=== PATIENT | female | born 1995 | race Caucasian/White ===

== ENCOUNTER → 2020-10-01 15:27 | Outpatient (CLI) | payer SELFPAY ==
[2020-10-01 18:05] LABS: Estradiol 53.3 pg/mL; Follicle Stimulating Hormone 8.3 mIU/mL; Luteinizing Hormone 8.1 mIU/mL
== END ==
PROVIDERS: Visit Provider Student in an Organized Health Care Education/Training Program
DX: N97.9 Female infertility, unspecified (principal)
CPT/HCPCS: 36415; 82670; 83001; 83002

== ENCOUNTER → 2020-10-18 10:39 | Outpatient (CLI) | payer SELFPAY ==
[2020-10-18 12:27] LABS: Progesterone Level 6.77 ng/mL (See Comment)
== END ==
PROVIDERS: Visit Provider Student in an Organized Health Care Education/Training Program
DX: N97.9 Female infertility, unspecified (principal)
CPT/HCPCS: 36415; 84144

== ENCOUNTER → 2022-07-13 | Outpatient (CLI) | payer OTHER, SELFPAY ==
[2022-07-13 14:38] LABS: Estradiol 47.9 pg/mL; Follicle Stimulating Hormone 7.6 mIU/mL; Luteinizing Hormone 6.7 mIU/mL
== END | disposition home or self-care (01) ==
LOC: WOBLAB 13:05
PROVIDERS: Visit Provider Student in an Organized Health Care Education/Training Program
DX: N97.9 Female infertility, unspecified (principal)
CPT/HCPCS: 36415; 82670; 83001; 83002; 84146

== ENCOUNTER → 2022-07-16 | Outpatient (CLI) | payer OTHER, SELFPAY ==
--- NOTE | 2022-07-16 11:04 | RAD_ITS ---
STUDY: HYSTEROSALPINGOGRAM. REASON FOR EXAM: Female, 27 years old. INFERTILITY FLUOROSCOPY TIME (if supplied): ( 9 seconds ) minutes/seconds. 2 images were submitted. TECHNIQUE: A hysterosalpingogram was performed by the volunteer services director. Imaging was obtained. COMPARISON: None. FINDINGS: The uterus is unremarkable. Both fallopian tubes are patent with free flow. RAD/Salpingogram IMPRESSION: Unremarkable hysterosalpingogram. Electronically Signed: Lul Finley MD at 13:19 EDT ,
== END | disposition home or self-care (01) ==
PROVIDERS: PCP Orthopaedic Surgery; Referring Provider Student in an Organized Health Care Education/Training Program; Visit Provider Student in an Organized Health Care Education/Training Program
DX: Z31.41 Encounter for fertility testing (principal)
CPT/HCPCS: 58340; 74740

== ENCOUNTER → 2022-09-15 | Outpatient (CLI) | payer OTHER, SELFPAY ==
[2022-09-15 11:30] LABS: Hematocrit 37.7 % (37-47); Hemoglobin 12.1 g/dL (12.0-15.0); Mean Corp Hgb Conc 32.1 g/dL (32-36); Mean Corpuscular Hgb 27.7 pg (27.0-32.0); Mean Corpuscular Volume 86.3 fL (81-99); Mean Platelet Vol. 9.8 fl (6.2-12.0); Platelet Count 331 K/mm3 (150-450); RBC Distribution Width CV 12.8 % (11.6-14.6); RBC Distribution Width SD 40.1 fl (35.1-43.9); Red Blood Count 4.37 M/mm3 (4.2-5.4)
[2022-09-15 11:44] LABS: ALB/GLOB Ratio 1.1 RATIO (0.9-2.4); AST(SGOT) 6 U/L (15-37); Alanine Aminotransfer ALT/SGPT 21 U/L (13-56); Albumin, Serum 4.1 g/dL (3.2-5.0); Alkaline Phosphatase 38 U/L (45-117); Anion Gap 5 (5-15); BUN 11 mg/dL (7-18); BUN/Creat Ratio 16.1 RATIO (10-20); Calcium,Total 9.3 mg/dL (8.5-10.1); Chloride 105 mmol/L (98-107); Creatinine, Serum 0.68 mg/dL (0.55-1.02); EST Glomerular Filtration Rate 109 mL/min (>60); Est Glom Filt Rate - Afr Amer 132 mL/min (>60); Globulin 3.9 g/dL (2.2-4.2); Glucose 96 mg/dL (74-106); Potassium 3.7 mmol/L (3.5-5.1); Sodium Level 139 mmol/L (136-145)
[2022-09-15 12:18] LABS: HIV - WCH Non-Reactive (Nonreactive); Hepatitis B Surface Antigen Non-Reactive (Nonreactive); Hepatitis C Antibody Non-Reactive (Nonreactive); Rubella IgG Reactive (Nonreactive); Syphilis Antibodies Non-reactive; Vitamin D,25 Hydroxy 45.2 ng/mL
[2022-09-15 14:33] LABS: Hemoglobin A1c 5.4 % (3.8-5.6)
[2022-09-18 20:52] LABS: Anti-Mullerian Hormone,Serum 1.04 ng/mL (.); V-Zoster IgG (Immunity) 2208 index (Immune >165)
== END | disposition home or self-care (01) ==
LOC: WOBLAB 10:04
PROVIDERS: PCP Orthopaedic Surgery; Visit Provider Obstetrics & Gynecology Reproductive Endocrinology
DX: Z31.41 Encounter for fertility testing (principal)
CPT/HCPCS: 36415; 80053; 82306; 83036; 83516; 84403; 85027; 86703; 86762; 86780; 86787; 86803; 86900; 86901; 87340

== ENCOUNTER → 2022-09-21 | Outpatient (CLI) | payer OTHER, SELFPAY ==
[2022-09-21 09:26] LABS: Thyroid Stim Hormone (TSH) 1.89 uIU/mL (0.358-3.74)
== END | disposition home or self-care (01) ==
LOC: WOBLAB 08:49
PROVIDERS: PCP Orthopaedic Surgery; Visit Provider Obstetrics & Gynecology Reproductive Endocrinology
DX: Z31.41 Encounter for fertility testing (principal)
CPT/HCPCS: 36415; 84443

== ENCOUNTER → 2022-10-07 | Outpatient (CLI) | payer OTHER, SELFPAY ==
[2022-10-07 11:58] LABS: hCG Titer Quant., Serum 534 mIU/mL (1-3)
== END | disposition home or self-care (01) ==
LOC: WOBLAB 10:43
PROVIDERS: PCP Orthopaedic Surgery; Visit Provider Student in an Organized Health Care Education/Training Program
DX: N91.2 Amenorrhea, unspecified (principal)
CPT/HCPCS: 36415; 84702

== ENCOUNTER → 2022-10-28 | Outpatient (CLI) | payer OTHER, SELFPAY ==
[2022-10-28 13:30] LABS: Absolute Neutrophil Count 2.5 X10^3/uL (2.0-7.7); Basophil# 0.05 X10^3/uL; Basophil% 0.9 % (0-1); Eosinophil# 0.14 X10^3/uL; Eosinophils% 2.6 % (0-5); Hematocrit 33.1 % (37-47); Hemoglobin 11.2 g/dL (12.0-15.0); Lymphocyte % 42.8 % (19-41); Mean Corp Hgb Conc 33.8 g/dL (32-36); Mean Corpuscular Hgb 28.2 pg (27.0-32.0); Mean Corpuscular Volume 83.4 fL (81-99); Mean Platelet Vol. 9.2 fl (6.2-12.0); Monocyte# 0.34 X10^3/uL; Monocyte% 6.3 % (0-10); NRBC Flagged by Analyzer 0 % (0-5); Neutrophil # 2.52 X10^3/uL (2.7-7.7); Platelet Count 311 K/mm3 (150-450); RBC Distribution Width CV 13.1 % (11.6-14.6); RBC Distribution Width SD 39.8 fl (35.1-43.9); Red Blood Count 3.97 M/mm3 (4.2-5.4); White Blood Count 5.4 K/mm3 (4.4-11.0)
[2022-10-28 14:14] LABS: HIV - WCH Non-Reactive (Nonreactive); Hepatitis B Surface Antigen Non-Reactive (Nonreactive); Hepatitis C Antibody Non-Reactive (Nonreactive); Rubella IgG Reactive (Nonreactive); Syphilis Antibodies Non-reactive
[2022-10-31 14:18] LABS: V-Zoster IgG (Immunity) 2626 index (Immune >165)
[2022-11-03 11:35] LABS: HPV Reflexed? NOT INDICATED
== END | disposition home or self-care (01) ==
LOC: WOBLAB 11:18
PROVIDERS: PCP Orthopaedic Surgery; Visit Provider Student in an Organized Health Care Education/Training Program
DX: Z34.81 Encounter for supervision of other normal pregnancy, first trimester (principal)
CPT/HCPCS: 36415; 85025; 86703; 86762; 86780; 86787; 86803; 87086; 87088; 87340; 88175; G0145

== ENCOUNTER → 2023-03-24 | Outpatient (CLI) | payer OTHER, SELFPAY ==
[2023-03-24 17:06] LABS: Absolute Lymphocyte Count 1.77 X10^3/uL (0.83-4.51); Absolute Neutrophil Count 7.5 X10^3/uL (2.0-7.7); Basophil# 0.02 X10^3/uL; Basophil% 0.2 % (0-1); Eosinophil# 0.13 X10^3/uL; Eosinophils% 1.3 % (0-5); Hematocrit 28.1 % (37-47); Hemoglobin 9.6 g/dL (12.0-15.0); Lymphocyte # 1.77 X10^3/ul (0.83-4.51); Lymphocyte % 17.9 % (19-41); Mean Corp Hgb Conc 34.2 g/dL (32-36); Mean Corpuscular Hgb 29.9 pg (27.0-32.0); Mean Corpuscular Volume 87.5 fL (81-99); Mean Platelet Vol. 9.2 fl (6.2-12.0); Monocyte# 0.41 X10^3/uL; Monocyte% 4.1 % (0-10); NRBC Flagged by Analyzer 0 % (0-5); Neutrophil # 7.48 X10^3/uL (2.7-7.7); Neutrophil % 75.8 % (47-70); Platelet Count 270 K/mm3 (150-450); RBC Distribution Width SD 41.8 fl (35.1-43.9); Red Blood Count 3.21 M/mm3 (4.2-5.4); White Blood Count 9.9 K/mm3 (4.4-11.0)
[2023-03-24 18:06] LABS: Glucose Challenge Gest 1H 50g 131 mg/dL (70-140)
[2023-03-24 19:09] LABS: Syphilis Antibodies Non-reactive
== END | disposition home or self-care (01) ==
LOC: LABSPEC 16:12
PROVIDERS: PCP Orthopaedic Surgery; Visit Provider Student in an Organized Health Care Education/Training Program
DX: Z34.82 Encounter for supervision of other normal pregnancy, second trimester (principal)
CPT/HCPCS: 36415; 82950; 85025; 86780

== ENCOUNTER → 2023-05-25 | Outpatient (CLI) | payer OTHER, SELFPAY ==
[2023-05-25 12:08] LABS: Hematocrit 32.3 % (37-47); Hemoglobin 10.9 g/dL (12.0-15.0); Mean Corp Hgb Conc 33.7 g/dL (32-36); Mean Corpuscular Hgb 29.5 pg (27.0-32.0); Mean Corpuscular Volume 87.5 fL (81-99); Mean Platelet Vol. 9.5 fl (6.2-12.0); Platelet Count 240 K/mm3 (150-450); RBC Distribution Width CV 12.7 % (11.6-14.6); RBC Distribution Width SD 40.3 fl (35.1-43.9); Red Blood Count 3.69 M/mm3 (4.2-5.4); White Blood Count 8.3 K/mm3 (4.4-11.0)
[2023-05-25 13:46] LABS: Thyroid Stim Hormone (TSH) 1.82 uIU/mL (0.358-3.74)
[2023-05-27 04:07] LABS: Thyroid Peroxidase AB 20 IU/mL (0-34)
== END | disposition home or self-care (01) ==
LOC: WOBLAB 11:43
PROVIDERS: PCP Orthopaedic Surgery; Visit Provider Student in an Organized Health Care Education/Training Program
DX: Z34.03 Encounter for supervision of normal first pregnancy, third trimester (principal); Z36.85 Encounter for antenatal screening for Streptococcus B
CPT/HCPCS: 36415; 84443; 85027; 86376; 87081

== ENCOUNTER 2023-06-16 02:43 | Inpatient (IN) | payer SELFPAY, OTHER ==
[2023-06-16] VITALS (29 sets, daily range): BP systolic 105–124; BP diastolic 56–91; PULSE 84–115; RESP 16; TEMP 36.1–37; O2SAT 98–100; BMI 24.3
--- NOTE | 2023-06-16 03:09 | HP.PCM.OB_ITS ---
History and Physical Date of Admission: 06/16/23 HPI: 28-year-old at 40/3 weeks, SHAYNA 06/13/2023 by LMP, admitted in labor. Reports regular contractions. Reports movement. Denies vaginal bleeding or leaking of fluid. Denies headache or vision changes, chest pain or shortness of breath, nausea or vomiting, diarrhea or constipation, fevers or chills. uncomplicated. RESEARCH DEVELOPMENT DIRECTOR history: G1: Current Medical history: Denies Surgical history: Denies Allergies: No known drug allergies Medications: vitamin Social history: Denies tobacco, alcohol, drug use Family history: Noncontributory Physical exam: Vitals pending General: No acute distress HEENT: Normocephalic/atraumatic Cardiorespiratory: No increased effort Abdomen: Soft, nontender, gravid Extremities: Minimal edema Neurologic: Cranial nerves II through XII grossly intact, no focal deficits Musculoskeletal: Moves all extremities equally Cervical exam: Per RN 9 cm, AROM clear fluid. Cervix unchanged on recheck heart rate: 120/moderate variability/+accel/no decel [place]: irregular Assessment/plan: 28-year-old at 40/3 weeks, SHAYNA 06/13/2023 by LMP, admitted in labor. ?Admit for labor. Expectant management ? GBS negative
[2023-06-16 03:30] LABS: Absolute Lymphocyte Count 2.53 X10^3/uL (0.83-4.51); Basophil# 0.05 X10^3/uL; Basophil% 0.4 % (0-1); Eosinophil# 0.09 X10^3/uL; Eosinophils% 0.7 % (0-5); Hematocrit 32.7 % (37-47); Hemoglobin 11.6 g/dL (12.0-15.0); Lymphocyte # 2.53 X10^3/ul (0.83-4.51); Lymphocyte % 20.4 % (19-41); Mean Corp Hgb Conc 35.5 g/dL (32-36); Mean Corpuscular Hgb 30.7 pg (27.0-32.0); Mean Corpuscular Volume 86.5 fL (81-99); Mean Platelet Vol. 10.3 fl (6.2-12.0); Monocyte# 0.67 X10^3/uL; Monocyte% 5.4 % (0-10); NRBC Flagged by Analyzer 0 % (0-5); Neutrophil # 9.02 X10^3/uL (2.7-7.7); Neutrophil % 72.5 % (47-70); Platelet Count 264 K/mm3 (150-450); RBC Distribution Width CV 12.6 % (11.6-14.6); RBC Distribution Width SD 39.8 fl (35.1-43.9); Red Blood Count 3.78 M/mm3 (4.2-5.4); White Blood Count 12.4 K/mm3 (4.4-11.0)
[2023-06-16 04:03] LABS: Syphilis Antibodies Non-reactive
[2023-06-16] MEDS: Oxytocin 10 UNITS/ML Vial IM (06:33)
[2023-06-16] MEDS: Lidocaine 1% (20 ml mdv) 20 ML Vial INFILT (06:33)
[2023-06-16] MEDS: Oxytocin 15 Units/NS 250ml 15 UNITS/250 ML IV.SOLN 83 UNITS IV (06:35)
--- NOTE | 2023-06-16 06:43 | EX.PCM.OBRPT ---
Maternal Data Information Final SHAYNA: 06/13/23 Vaginal Delivery Operative Information Date of Procedure: 06/16/23 Pre-Operative Diagnosis: Bhat intrauterine Post-Operative Diagnosis: Same Surgery / Procedure Performed: Spontaneous Vaginal Delivery Type of Anesthesia: None Estimated Blood Loss: 400 cc Findings Description of Procedure: Spontaneous vaginal delivery of viable infant male. No nuchal cord. Baby to mom. Cord clamped and cut. Spontaneous delivery of placenta. Second-degree laceration. Lidocaine used. Laceration repaired in the usual fashion. Hemostatic. A Gender: Male (1 minute): 8 (5 minute): 9 Delayed Cord Clamping: Yes Complication Complications: None
[2023-06-16] MEDS: 0.9% Saline Lock 10 ML Syringe IV (09:53)
[2023-06-16] MEDS: Ibuprofen 600 MG Tablet PO ×2 (10:50→18:53)
[2023-06-16] MEDS: Senna/Docusate Sodium 1 Tablet PO ×2 (10:50→21:53)
[2023-06-16] MEDS: Acetaminophen 500 MG Tablet 1000 MG PO ×2 (15:20→21:55)
--- NOTE | 2023-06-16 17:28 | NURSING ---
reviewed student charting that is used for educational and learning purposes
[2023-06-17] VITALS (7 sets, daily range): BP systolic 107–118; BP diastolic 59–73; PULSE 75–108; RESP 16; TEMP 36.1–37.1; O2SAT 99
[2023-06-17] MEDS: Ibuprofen 600 MG Tablet PO ×2 (01:25→13:04)
[2023-06-17] MEDS: Acetaminophen 500 MG Tablet 1000 MG PO (07:11)
--- NOTE | 2023-06-17 08:43 | DCINST_ITS ---
Discharge Instructions Diet Discharge Diet: No restrictions Activity Discharge Activity: Return to Normal Activity, May Drive and May Shower May resume sexual activity in: 6-8 weeks Weight Bearing Status: Weight bearing as tolerated Dressing / Incision Call your doctor if your incision/area has: Continuous Slow Oozing and Foul Smelling Discharge Call your doctor if you observe: Fever of 101 or Higher, Shortness of breath and Chest pain Follow Up Care Please Follow Up With: Jon Garcia MD When: 1 week Test Results: Test results from this visit will be discussed in further detail at your follow- up appointment, if applicable. Discharge Plan Admission Admit Date/Time: 06/16/23 02:43 Attending Provider: Brunilda Garcia Primary Care Provider: Brayden Garcia Discharge Orders/Prescriptions Prescriptions: No Action prenat.vits,rajesh,[id number] Tablet PO DAILY Referrals / Follow Up: Brayden Garcia MD [Primary Care Provider] - Disposition Discharge Orders: Discharge Patient (Routine); Ordered 06/17/23 Ordered By: Dr. Jon Garcia
--- NOTE | 2023-06-17 08:43 | PN.OBGYN_ITS ---
Subjective Subjective No overnight complaint Objective Data Objective Data Vital Signs: Vital Signs Temp Pulse Resp BP Pulse Ox O2 Del Method 97.9 F 80 16 109/59 L 99 Room Air 06/17/23 03:51 06/17/23 03:51 06/17/23 03:51 06/17/23 03:51 06/17/23 01:29 06/17/23 03:51 Oxygen Delivery Method Room Air Weight: 142 lb Body Mass Index (BMI) 24.3 Intake & Output: Intake and Output for Last 24 Hours 06/15/23 06/16/23 06/17/23 23:59 23:59 23:59 Intake Total 2049 Output Total 1999 Balance 50 / 50 Lab / Micro Data 06/16/23 02:56 Physical Exam Const alert, oriented x3, no apparent distress, average body habitus, healthy appearing and well nourished HEENT normocephalic and moist oral mucous membranes Eyes PERRL Neck full ROM Resp normal respiratory effort, no retractions and no use of accessory muscles GI GI Narrative: Soft, nontender, uterus firm and below umbilicus Extremity normal to inspection and full ROM Neuro moves all extremities and no focal motor deficits Psych mental status grossly normal, affect normal, speech normal and activity/motor behavior normal Assessment & Plan (1) Vaginal delivery: PLAN: day 1. Breast-feeding. Pain well controlled. Okay to discha rge home today if okay with supervisor grain and yeast plants. Educated patient on options for follow-up suggested being seen in office at [place] in 1 week, discussed prior to delivery and today follow-up options long-term for follow-up, patient and partner state understanding
== END 2023-06-17 16:00 | disposition home or self-care (01) | DRG 807 ==
LOC: WPOUT 02:45 → WP 02:45
PROVIDERS: Admitting Provider Student in an Organized Health Care Education/Training Program; PCP Orthopaedic Surgery; Referring Provider Student in an Organized Health Care Education/Training Program; Visit Provider Student in an Organized Health Care Education/Training Program
DX: O70.1 Second degree perineal laceration during delivery (principal); Z37.0 Single live birth; Z3A.40 40 weeks gestation of pregnancy
CPT/HCPCS: 59025; 59050; 85025; 86780; 86850; 86900; 86901; 99221; A4216; G0378